=== PATIENT | male | born 1990 | race Caucasian/White ===

== ENCOUNTER 2021-11-23 20:02 | Emergency (ER) | payer SELFPAY ==
[2021-11-23 20:03] VITALS: BP 168/86; PULSE 87; RESP 18; TEMP 37.1; O2SAT 97; BMI 27.9
--- NOTE | 2021-11-23 20:07 | RAD_ITS ---
STUDY: X-RAY - LEFT WRIST REASON FOR EXAM: Male, 31 years old. PAIN TECHNIQUE: 3 view(s) of the wrist were obtained. COMPARISON: None. FINDINGS: Normal visualized distal radius and ulna. Normal radiocarpal articulation. Normal distal radioulnar articulation. Normal carpal bones. Normal carpal articulations. Normal carpometacarpal articulation of the thumb. Normal second through fifth carpometacarpal articulations. Normal visualized metacarpal bones. The soft tissue structures are unremarkable. RAD/Wrist min 3 Views IMPRESSION: Normal x-ray examination of the wrist. Electronically Signed: Con Hampton MD at 20:26 EDT ,
--- NOTE | 2021-11-23 22:52 | EDS_ITS ---
HPI History of Present Illness Chief Complaint: Upper Extremity Injury Detail of Chief Complaint: Left wrist pain Informant: patient Onset/Context/Timing Onset: Today Current Severity: Mild Maximum Severity: Moderate Narrative Narrative: Patient presents with left wrist pain was present when he woke this morning. He denies any injury. He is right-hand dominant. He denies paresthesias or weakness. When asked if he does repetitive motion at work with his wrist, he states not really. PFSH PFS Medical History no medical history no medical history Home Medications prednisone 20 mg tablet 40 mg PO DAILY #8 tabs 11/23/21 [Rx Last Taken Unknown] Allergy/AdvReac Type Severity Reaction Status Date / Time No Known Allergies Allergy Verified 11/23/21 20:05 ROS ROS ED Constitutional Constitutional ED: Denies chills or fever(s) Eyes Eyes: Denies change in vision or discharge from eye(s) ENT ENT ED: Denies discharge from eye(s), rhinorrhea or sore throat Cardiovascular Cardiovascular: Denies chest pain or palpitations Respiratory/Chest Respiratory/Chest: Denies cough or dyspnea Gastrointestinal Gastrointestinal: Denies abdominal pain, diarrhea, nausea or vomiting Genitourinary Genitourinary ED: Denies dysuria or LMP (females 10-50) Musculoskeletal Musculoskeletal: Reports extremity pain; Denies back pain Integumentary Denies Abrasions or rash Neurologic Neurologic: Denies headache(s) or weakness Psychiatric Psychiatric: Denies anxiety or depression Allergic/Immunologic Allergic/Immunologic ED: Denies lip swelling or urticaria EXAM Physical Exam Const Vital Signs: 11/23/21 20:03 Temperature 98.7 F Temperature Source Temporal Pulse Rate 87 Respiratory Rate 18 Blood Pressure 168/86 H Blood Pressure Mean 113 Pulse Ox 97 Oxygen Delivery Method Room Air Positive well nourished and well developed General Appearance ED: well developed HEENT Reports normocephalic and head/scalp atraumatic Eyes PERRL and EOMs intact bilaterally Neck supple Chest Wall inspection of chest normal and palpation of chest normal Resp normal respiratory effort and clear to auscultation bilaterally Cardio regular rate and regular rhythm GI normal to inspection, nondistended, normoactive bowel sounds Palpation: soft Extremity normal to inspection Extremity Narrative: Mild tenderness to palpation of the extensor portion of the left wrist. Good range of motion with normal cap refill and sensation distally. No tenderness at the elbow or shoulder. He does have slight increased pain with extreme flexion and extension. Neuro oriented x3 and no sensory deficits noted Sensorium / Orientation: alert Motor Exam: strength 5/5 throughout Psych mental status grossly normal Skin no rashes or lesions noted MDM MDM MDM Narrative Medical decision making narrative: Left wrist x-rays were obtained per nursing protocol. Radiography Diagnostic Testing: Clinical Impression(s) from Imaging Studies Wrist X-Ray 11/23/21 20:07 IMPRESSION: Normal x-ray examination of the wrist. Electronically Signed: Con Hampton MD at 20:26 EDT , Treatment and Re-Evaluation Narrative: Left wrist x-ray per my interpretation reveals no acute fracture. Radiology interpretation is reviewed. Patient's symptoms and exam findings are consistent with tendinitis. I will treat him with a short burst of steroids. Emmett wrap is applied. He will be given work restrictions. Discharge Plan Triage Chief Complaint: Upper Extremity Injury ED Provider: Marybeth Malone Dx/Rx/DC Orders Clinical Impression: Left wrist tendonitis Instructions: ED Tendonitis Prescriptions: New prednisone 20 mg tablet 40 mg PO DAILY Qty: 8 0RF Primary Care Provider: Care Physician,No Primary Referrals: Ivan Bowden MD [Med Staff - [employer]] - 1 Week if not improving Care Physician,No Primary [Primary Care Provider] - Disposition Disposition: Home, Self Care
[2021-11-23] MEDS: predniSONE 20 MG Tablet 40 MG PO (23:02)
== END 2021-11-23 23:06 | disposition home or self-care (01) ==
PROVIDERS: Emergency Provider Emergency Medicine; Visit Provider Emergency Medicine
DX: M67.834 Other specified disorders of tendon, left wrist (principal)
CPT/HCPCS: 73110; 99283

== ENCOUNTER 2021-12-01 18:26 | Emergency (ER) | payer SELFPAY ==
[2021-12-01 18:27] VITALS: BP 154/98; PULSE 82; RESP 16; TEMP 36.6; O2SAT 98; BMI 27.4
--- NOTE | 2021-12-01 18:51 | ED.VIS.DENTA ---
HPI History of Present Illness Chief Complaint: Edema Detail of Chief Complaint: facial swelling Informant: patient Onset/Context/Timing Onset: Today Context: Gradual Onset Timing: Continuous Quality: swelling, sore Location: R cheek Current Severity: Moderate Maximum Severity: Moderate Worsened by: palpation Relieved by: - (leaving alone) Associated Symptoms Assocated Symptom - Dental: face swelling; Negative for fever or jaw swelling Narrative Narrative: Patient presents with gradual onset right facial swelling and soreness today. Not hurting much unless he presses on it. Denies any new problems in his mouth. No systemic symptoms. [facility] Medical History Left wrist pain Home Medications prednisone 20 mg tablet 40 mg PO DAILY #8 tabs 11/23/21 [Rx Last Taken Unknown] amoxicillin 500 mg tablet 500 mg PO TID #30 tabs 12/01/21 [Rx Last Taken Unknown] Allergy/AdvReac Type Severity Reaction Status Date / Time No Known Allergies Allergy Verified 12/01/21 18:28 Social History Smoking Status: Current every day smoker tobacco type: cigarettes ROS ROS ED Constitutional Constitutional ED: Denies chills or fever(s) Eyes Eyes: Denies change in vision or double vision ENT ENT ED: Reports dental pain; Denies sinus pain or throat swelling Cardiovascular Cardiovascular: Denies chest pain or palpitations Respiratory/Chest Respiratory/Chest: Denies cough or dyspnea Integumentary Denies abscess or rash Neurologic Neurologic: Denies headache(s), paresthesias or weakness EXAM Physical Exam Const Vital Signs: 12/01/21 18:27 Temperature 97.9 F Temperature Source Temporal Pulse Rate 82 Respiratory Rate 16 Blood Pressure 154/98 H Blood Pressure Mean 116 Pulse Ox 98 Oxygen Delivery Method Room Air Positive well nourished and well developed General Appearance ED: well developed and NAD HEENT HEENT Narrative: No nasal purulent drainage or turbinate edema. Sinuses benign. Mild swelling right cheek which is tender anteriorly without erythema. Intraorally, there is a periapical abscess above approximately tooth #6 that is just caudal to the swollen area in his face. It appears to be the cause. It is not draining but it is pointing. He has terrible dentition with every tooth in the maxilla decayed down to the gumline. There were no other areas of gingival or dental tenderness. No parotid swelling or tenderness or discharge from Stensen's duct. No trismus. Tongue normal. Face and Sinus: sinuses nontender Throat: posterior oropharynx normal Eyes PERRL and EOMs intact bilaterally Neck no lymphadenopathy and supple Resp normal respiratory effort Neuro oriented x3 and CN's II-XII intact bilaterally Sensorium / Orientation: alert Gait (Neuro): normal gait Psych mental status grossly normal and thought process normal Skin no rashes or lesions noted and no wounds MDM MDM MDM Narrative Medical decision making narrative: The patient's facial swelling is coming from this dental abscess. His dentition is very poor. I advised antibiotics in addition to incision and drainage she was amenable to that see the procedure note. We did get some purulent material out and placed him on amoxicillin given a dental list. Procedures Other Procedures Procedure(s): Dental abscess drainage: After informed consent verbally, topical anesthesia with Cetacaine spray, I was able to place an 18-gauge within the abscess and aspirate half cc of pus. Patient tolerated well no complications, irrigated with ice water afterwards. Discharge Plan Triage Chief Complaint: Edema ED Provider: Yeyo Montoya Dx/Rx/DC Orders Clinical Impression: Dental abscess Instructions: ED Dental Abscess Prescriptions: New amoxicillin 500 MG tablet 500 mg PO TID Qty: 30 0RF No Action prednisone 20 mg tablet 40 mg PO DAILY Qty: 8 0RF Primary Care Provider: Care Physician,No Primary Referrals: Care Physician,No Primary [Primary Care Provider] - Dentist,Your [STAFF PHYSICIAN] - 5-7 Days (Or when able; see the attached resource list if needed) Disposition Disposition: Home, Self Care
[2021-12-01] MEDS: Tetracaine/Benzocaine/Butamben 1 APPLIC TOPICAL (18:54)
[2021-12-01] MEDS: AMOXICILLIN 500 MG CAPSULE PO (18:55)
[2021-12-01] MEDS: Naproxen 250 MG Tablet 500 MG PO (18:55)
== END 2021-12-01 19:34 | disposition home or self-care (01) ==
LOC: ED 19:23
PROVIDERS: Emergency Provider Emergency Medicine; Visit Provider Emergency Medicine
DX: K04.7 Periapical abscess without sinus (principal); F17.210 Nicotine dependence, cigarettes, uncomplicated
CPT/HCPCS: 41800; 99283